=== PATIENT | female | born 1945 | race Caucasian/White ===

== ENCOUNTER 2016-11-01 17:30 | Emergency (ER) | payer MEDICARE, BC ==
[~2016-11-01] VITALS: Ht 152.4 cm; Wt 34.9 kg
[2016-11-01 17:38] VITALS: BP 141/94
[2016-11-01 18:48] LABS: Basophils # (auto) 0.1 uL; Basophils % (auto) 0.8 % (0.0-2.0); CONDITION Y; Eosinophils # (auto) 0.1 uL; Eosinophils % (auto) 1.1 % (0.0-7.0); Hematocrit 35.8 % (36.0-46.0); Hemoglobin 11.4 g/dL (12.2-16.2); Lymphocytes # (auto) 1.5 uL; Lymphocytes % (auto) 19.5 % (10.0-50.0); Mean Corpuscular Volume 90.5 fL (80.0-100.0); Mean Platelet Volume 9.9 fL (7.4-10.4); Monocytes # (auto) 0.9 uL; Monocytes % (auto) 11.3 % (0.0-12.0); Neutrophils # (auto) 5.3 uL; Neutrophils % (auto) 67.3 % (37.0-80.0); Platelet Count (auto) 223 10^3/uL (140-450); Red Cell Distribution Width 16.7 % (11.6-16.0); White Blood Cell 7.9 10^3/uL (4.4-10.8)
[2016-11-01 19:12] LABS: Albumin 3.4 g/dL (3.4-5.0); Anion Gap 11 (5-15); Aspartate Aminotransferase 8 U/L (15-37); Blood Urea Nitrogen 42 mg/dL (7-18); Calcium 8.3 mg/dL (8.5-10.1); Carbon Dioxide 19 mmol/L (21-32); Chloride 115 mmol/L (98-107); GFR African American 28 mL/min; GFR Non-African American 23 mL/min; Glucose 127 mg/dL (74-106); Magnesium 1.8 mg/dL (1.6-2.6); Potassium 4.3 mmol/L (3.5-5.1); Sodium 145 mmol/L (136-145)
[2016-11-01 19:17] LABS: Alkaline Phosphatase 91 U/L (45-117); Bilirubin, Total 0.2 mg/dL (0.2-1.0); Total Protein 7.4 g/dL (6.4-8.2)
== END 2016-11-01 21:49 | disposition left against medical advice (07) ==
LOC: ER 17:33
DX: R06.02 Shortness of breath (principal); Z53.21 Procedure and treatment not carried out due to patient leaving prior to being seen by health care provider
CPT/HCPCS: 36415; 71020; 80053; 82962; 83735; 84484; 85025; 93005

== ENCOUNTER 2017-02-14 22:14 | Inpatient (IN) | payer MEDICARE, OTHER ==
[~2017-02-14] VITALS: Ht 180.3 cm; Wt 42.0 kg
[2017-02-14 23:04] LABS: Basophils # (auto) 0.1 uL; Eosinophils # (auto) 0.1 uL; Lymphocytes # (auto) 0.6 uL
[2017-02-14 23:06] LABS: Basophils % (auto) 0.7 % (0.0-2.0); Eosinophils % (auto) 0.8 % (0.0-7.0); Lymphocytes % (auto) 4.1 % (10.0-50.0); Mean Corpuscular Hemoglobin 29.5 pg (28.0-32.0); Mean Platelet Volume 8.4 fL (6.9-10.8); Monocytes # (auto) 1.2 uL; Monocytes % (auto) 8.4 % (0.0-12.0); Platelet Count (auto) 338 10^3/uL (140-450); Red Cell Distribution Width 15.4 % (11.8-14.3); White Blood Cell 13.9 10^3/uL (4.4-10.8)
[2017-02-14 23:17] LABS: INR 0.99 (0.9-1.15); Partial Thromboplastin Time 37.3 sec (22.64-33.71); Prothrombin Time 10.8 sec (9.37-12.3)
[2017-02-14 23:23] LABS: Albumin 2.2 g/dL (3.4-5.0); Anion Gap 17 (5-15); Calcium 6.5 mg/dL (8.5-10.1); Carbon Dioxide 17 mmol/L (21-32); Chloride 100 mmol/L (98-107); Glucose 222 mg/dL (74-106); Magnesium 1.5 mg/dL (1.6-2.6); Potassium 5.1 mmol/L (3.5-5.1); Sodium 134 mmol/L (136-145)
[2017-02-14 23:26] LABS: Aspartate Aminotransferase 7 U/L (15-37); BUN/Creatinine Ratio 16.5; Bilirubin, Total 0.3 mg/dL (0.2-1.0); GFR African American 11 mL/min; GFR Non-African American 9 mL/min; Total Protein 7.1 g/dL (6.4-8.2)
[2017-02-14 23:29] LABS: Alkaline Phosphatase 75 U/L (45-117)
[2017-02-14 23:35] LABS: Blood Urea Nitrogen 85 mg/dL (7-18)
[2017-02-14 23:40] LABS: B-Type Natriuretic Peptide 146.3 pg/mL (0-100)
[2017-02-14 23:49] LABS: Temperature: 23.1 C (20.0-25.0)
[2017-02-15] MEDS ORDERED: SODIUM CHLORIDE 0.9% 1,000 ML IV ONE (00:15)
[2017-02-15 00:39] LABS: Amylase 35 U/L (25-115)
[2017-02-15] MEDS ORDERED: MAGNESIUM CITRATE SOLUTION 300 ML BTL PO ONE (02:30)
[2017-02-15] MEDS ORDERED: LACTULOSE 20Gm/30ML SOLN PO ONE (02:30)
[2017-02-15 02:33] LABS: Urine Bilirubin Negative (Negative); Urine Blood 1+ /uL (Negative); Urine Color Yellow (Yellow); Urine Glucose TRACE mg/dL (Normal); Urine Ketone Negative (Negative); Urine Nitrite Negative (Negative); Urine RBC 1 /hpf (0 - 4); Urine Squamous Epithelial Cell FEW /hpf (<5); Urine Urobilinogen Normal (Negative); Urine pH 5.5 (5.0-8.0)
[2017-02-15] MEDS ORDERED: SODIUM CHLORIDE 0.9% 1,000 ML IV SCH (03:33)
[2017-02-15] MEDS ORDERED: CALCIUM GLUC 4.65meq/50ml D5AE 50 ML IV ONE (03:45)
[2017-02-15] MEDS ORDERED: DEXTROSE (50%) 50ML SYRG IV PRN (03:45)
[2017-02-15] MEDS ORDERED: SODIUM BICARBONATE 650 MG TAB PO ONE (03:45)
[2017-02-15] MEDS ORDERED: MORPHINE SULF INJ 2 MG/ML SYRINGE 1ML IV PRN (03:45)
[2017-02-15] MEDS ORDERED: LOPERAMIDE HCL 2 MG CAP PO ONE (03:45)
[2017-02-15] MEDS ORDERED: ONDANSETRON HCL 4 MG/2 ML VIAL IV PRN (03:45)
[2017-02-15] MEDS ORDERED: ACETAMINOPHEN 325 MG TAB PO PRN (03:45)
[2017-02-15] MEDS ORDERED: NITROGLYCERIN 0.4 MG SL TAB SL PRN (03:45)
[2017-02-15] MEDS ORDERED: PANTOPRAZOLE 40 MG/10 ML VIAL IV ONE (03:45)
[2017-02-15 04:06] LABS: Allen Test Yes; Base Excess -9.5 mmol/L (-2.0-2.0); Blood 02Sat 95.8 % (96-100); Blood COHb 0.5 % (0.5-1.5); Blood MetHb 0.1 % (0.0-1.5); HCO3 16.3 mmol/L (22-26.0); HHb 4.2 % (0.0-5.0); MODE NASAL CANNULA; O2Hb 95.2 % (94.0-97.0); PCO2 35.3 mmHg (35.0-45.0); PCO2(T) 35.3 mmHg (35.0-45.0); PO2 100.1 mmHg (80.0-100.0); PO2(T) 100.1 mmHg (80.0-100.0); Room 1010-ERT; Sample Type Arterial; pH 7.283 (7.350-7.450)
[2017-02-15] MEDS ORDERED: ALBUTEROL SULF 2.5 MG/0.5ML(0.5%) NEB SOLN NEB PRN (05:15)
[2017-02-15] MEDS: MAGNESIUM SULFATE 1GM/100ML 100 ML IV SCH ×2 (05:24→06:50)
[2017-02-15] MEDS: ACCU-CHEK COMFORT CURVE STRIP VI SCH ×3 (06:50→18:11)
[2017-02-15] MEDS: InsuLIN REG 1unit/0.01ml Soln (100units/ml) SC SCH ×3 (06:58→18:11)
[2017-02-15] MEDS: PANTOPRAZOLE 40 MG/10 ML VIAL IV SCH (08:33)
[2017-02-15] MEDS: cefTRIAXone 1GM/50ML D5W 50 ML IV SCH (08:33)
[2017-02-15] MEDS: SODIUM BICARBONATE 650 MG TAB PO SCH ×2 (08:33→21:49)
[2017-02-15] MEDS: DILTIAZEM HCL 120MG ER CAP PO SCH (08:33)
[2017-02-15] MEDS ORDERED: PANTOPRAZOLE 40 MG/10 ML VIAL IV SCH (10:00)
[2017-02-15 13:00] VITALS: BP 90/53
[2017-02-15] MEDS: SODIUM BICARBONATE 50ML VIAL 75 ML in SOD CHL 0.45% 1,000 ML IV SCH (14:15)
[2017-02-15 17:01] VITALS: BP 114/43
[2017-02-15] MEDS ORDERED: PANT40TA2 PO (18:13)
[2017-02-15] MEDS ORDERED: DILT240C46 PO (18:13)
[2017-02-15] MEDS ORDERED: LOPE2CAP PO (18:13)
[2017-02-15] MEDS ORDERED: LOSA100T26 PO (18:13)
[2017-02-15] MEDS ORDERED: DIPH2.5T73 PO (18:15)
[2017-02-15] MEDS ORDERED: ASPI81TA27 PO (18:15)
[2017-02-15] MEDS ORDERED: INSLANTI SC (18:15)
[2017-02-15] MEDS ORDERED: ALPR1TAB7 PO (18:15)
[2017-02-15] MEDS ORDERED: ALPR0.254 PO (18:15)
[2017-02-15] MEDS ORDERED: HYDR-531 PO (18:15)
[2017-02-15] MEDS ORDERED: INSLISPI SC (18:16)
[2017-02-15 22:00] VITALS: BP 126/57
[2017-02-16] MEDS: InsuLIN REG 1unit/0.01ml Soln (100units/ml) SC SCH ×5 (00:20→23:35)
[2017-02-16] MEDS: ACCU-CHEK COMFORT CURVE STRIP VI SCH ×5 (00:20→23:35)
[2017-02-16] MEDS ORDERED: SODIUM BICARBONATE 8.4% INJ 50ML SYRINGE ONE (02:05)
[2017-02-16] MEDS: SODIUM BICARBONATE 50ML VIAL 75 ML in SOD CHL 0.45% 1,000 ML IV SCH ×2 (02:20→14:10)
[2017-02-16 05:12] VITALS: BP 137/58
[2017-02-16 05:35] LABS: Basophils # (auto) 0.1 uL; Eosinophils # (auto) 0.2 uL; Lymphocytes # (auto) 0.8 uL; Mean Platelet Volume 8.1 fL (6.9-10.8); Monocytes # (auto) 0.8 uL; White Blood Cell 9.2 10^3/uL (4.4-10.8)
[2017-02-16 05:39] LABS: Basophils % (auto) 0.9 % (0.0-2.0); Eosinophils % (auto) 2.7 % (0.0-7.0); Hematocrit 23.5 % (36.0-46.0); Hemoglobin 7.9 g/dL (12.2-16.2); Lymphocytes % (auto) 9.2 % (10.0-50.0); Mean Corpuscular Hemoglobin 30.5 pg (28.0-32.0); Mean Corpuscular Hgb Conc. 33.8 g/dL (32.0-36.0); Mean Corpuscular Volume 90.3 fL (80.0-100.0); Neutrophils # (auto) 7.2 uL; Neutrophils % (auto) 78.2 % (37.0-80.0); Platelet Count (auto) 313 10^3/uL (140-450); Red Cell Distribution Width 14.8 % (11.8-14.3)
[2017-02-16 06:02] LABS: Albumin 1.9 g/dL (3.4-5.0); Calcium 7.2 mg/dL (8.5-10.1); Potassium 3.9 mmol/L (3.5-5.1)
[2017-02-16 06:06] LABS: Bilirubin, Total 0.3 mg/dL (0.2-1.0)
[2017-02-16 06:12] LABS: BUN/Creatinine Ratio 18.2
[2017-02-16 08:00] VITALS: BP 133/69
[2017-02-16 09:00] VITALS: BP 133/69
[2017-02-16] MEDS: cefTRIAXone 1GM/50ML D5W 50 ML IV SCH (09:12)
[2017-02-16] MEDS: PANTOPRAZOLE 40 MG/10 ML VIAL IV SCH (11:00)
[2017-02-16] MEDS: SODIUM BICARBONATE 650 MG TAB PO SCH ×2 (11:01→21:21)
[2017-02-16] MEDS: DILTIAZEM HCL 120MG ER CAP PO SCH (11:01)
[2017-02-16 13:00] VITALS: BP 152/72
[2017-02-16 17:00] VITALS: BP 152/70
[2017-02-16 21:30] VITALS: BP 143/78
[2017-02-17] MEDS: SODIUM BICARBONATE 50ML VIAL 75 ML in SOD CHL 0.45% 1,000 ML IV SCH ×2 (04:34→18:50)
[2017-02-17 05:07] VITALS: BP 138/73
[2017-02-17] MEDS: ACCU-CHEK COMFORT CURVE STRIP VI SCH ×4 (05:36→23:37)
[2017-02-17] MEDS: InsuLIN REG 1unit/0.01ml Soln (100units/ml) SC SCH ×4 (05:36→23:37)
[2017-02-17 06:31] LABS: BUN/Creatinine Ratio 17.4; Calcium 6.7 mg/dL (8.5-10.1); Phosphorus 8.4 mg/dL (2.5-4.90); Potassium 3.9 mmol/L (3.5-5.1)
[2017-02-17 08:00] VITALS: BP 138/73
[2017-02-17 09:00] VITALS: BP 144/76
[2017-02-17] MEDS: PANTOPRAZOLE 40 MG/10 ML VIAL IV SCH (09:05)
[2017-02-17] MEDS: HYDROcodone-ACET 5/325MG TAB PO PRN ×2 (09:07→16:45)
[2017-02-17] MEDS: SODIUM BICARBONATE 650 MG TAB PO SCH ×2 (09:07→21:26)
[2017-02-17] MEDS: DILTIAZEM HCL 120MG ER CAP PO SCH (09:07)
[2017-02-17] MEDS: cefTRIAXone 1GM/50ML D5W 50 ML IV SCH (09:10)
[2017-02-17 13:00] VITALS: BP 143/65
[2017-02-17 17:00] VITALS: BP 144/68
[2017-02-17] MEDS: ALPRAZolam 0.25 MG TAB PO PRN (17:24)
[2017-02-17 22:00] VITALS: BP 137/73
[2017-02-18] MEDS: HYDROcodone-ACET 5/325MG TAB PO PRN (04:06)
[2017-02-18] MEDS: InsuLIN REG 1unit/0.01ml Soln (100units/ml) SC SCH ×4 (05:40→23:53)
[2017-02-18] MEDS: ACCU-CHEK COMFORT CURVE STRIP VI SCH ×4 (05:40→23:53)
[2017-02-18 05:50] VITALS: BP 147/62
[2017-02-18] MEDS ORDERED: SODIUM FERR GLUC 62.5MG/5ML 125 MG in SODIUM CHL 0.9% 100 ML IV ONE (07:45)
[2017-02-18 09:00] VITALS: BP_SYST 114; BP_SYST 147; BP_DIAS 50; BP_DIAS 77
[2017-02-18 09:28] LABS: BUN/Creatinine Ratio 17.1; Calcium 6.5 mg/dL (8.5-10.1); Potassium 3.5 mmol/L (3.5-5.1)
[2017-02-18] MEDS: Suplena 8 ounce PO SCH ×2 (10:00→21:49)
[2017-02-18] MEDS: SODIUM BICARBONATE 650 MG TAB PO SCH ×2 (11:08→21:49)
[2017-02-18] MEDS: PANTOPRAZOLE 40 MG/10 ML VIAL IV SCH (11:10)
[2017-02-18] MEDS: DILTIAZEM HCL 120MG ER CAP PO SCH (11:10)
[2017-02-18] MEDS: cefTRIAXone 1GM/50ML D5W 50 ML IV SCH (11:11)
[2017-02-18 13:00] VITALS: BP 154/80
[2017-02-18 17:00] VITALS: BP 136/77
[2017-02-18] MEDS: ALPRAZolam 0.25 MG TAB PO PRN (22:49)
[2017-02-18 23:53] VITALS: BP 161/80
[2017-02-19 04:50] VITALS: BP 134/72
[2017-02-19 05:59] LABS: Basophils # (auto) 0.1 uL; Hemoglobin 7.7 g/dL (12.2-16.2); Lymphocytes # (auto) 0.8 uL; Mean Platelet Volume 8.1 fL (6.9-10.8)
[2017-02-19] MEDS: InsuLIN REG 1unit/0.01ml Soln (100units/ml) SC SCH ×3 (06:00→18:22)
[2017-02-19 06:03] LABS: Basophils % (auto) 1.1 % (0.0-2.0); Eosinophils # (auto) 0.1 uL; Hematocrit 23.9 % (36.0-46.0); Lymphocytes % (auto) 11.6 % (10.0-50.0); Mean Corpuscular Hemoglobin 29.5 pg (28.0-32.0); Mean Corpuscular Hgb Conc. 32.3 g/dL (32.0-36.0); Mean Corpuscular Volume 91.2 fL (80.0-100.0); Monocytes # (auto) 0.7 uL; Monocytes % (auto) 9.6 % (0.0-12.0); Neutrophils # (auto) 5.4 uL; Neutrophils % (auto) 75.7 % (37.0-80.0); Platelet Count (auto) 249 10^3/uL (140-450); Red Cell Distribution Width 14.8 % (11.8-14.3); White Blood Cell 7.1 10^3/uL (4.4-10.8)
[2017-02-19] MEDS: ACCU-CHEK COMFORT CURVE STRIP VI SCH ×4 (06:04→23:59)
[2017-02-19] MEDS: HYDROcodone-ACET 5/325MG TAB PO PRN (06:14)
[2017-02-19 06:29] LABS: Albumin 1.8 g/dL (3.4-5.0); Calcium 6.3 mg/dL (8.5-10.1)
[2017-02-19 06:32] LABS: Bilirubin, Total 0.2 mg/dL (0.2-1.0); Total Protein 5.7 g/dL (6.4-8.2)
[2017-02-19 06:40] LABS: Potassium 2.9 mmol/L (3.5-5.1)
[2017-02-19] MEDS ORDERED: POTASSIUM CHLORIDE 40 MEQ, LIDOCAINE 1% (LOCAL ANESTH.) 4 ML in SODIUM CHL 0.9% 250 ML IV ONE (08:45)
[2017-02-19 09:00] VITALS: BP 158/77
[2017-02-19] MEDS: Suplena 8 ounce PO SCH ×2 (10:00→22:49)
[2017-02-19] MEDS: cefTRIAXone 1GM/10ml IVPUSH 10 ML IV SCH (10:28)
[2017-02-19] MEDS: SODIUM BICARBONATE 650 MG TAB PO SCH ×2 (10:28→21:45)
[2017-02-19] MEDS: PANTOPRAZOLE 40 MG/10 ML VIAL IV SCH (10:28)
[2017-02-19] MEDS: DILTIAZEM HCL 120MG ER CAP PO SCH (10:29)
[2017-02-19 12:34] VITALS: BP 155/78
[2017-02-19 14:44] VITALS: BP 155/78
[2017-02-19 16:13] VITALS: BP 152/66
[2017-02-19] MEDS: LOPERAMIDE HCL 2 MG CAP PO PRN ×3 (16:17→21:49)
[2017-02-19] MEDS: SODIUM FERR GLUC 62.5MG/5ML 125 MG in SODIUM CHL 0.9% 100 ML IV SCH (17:24)
[2017-02-19] MEDS: ALPRAZolam 0.25 MG TAB PO PRN (21:45)
[2017-02-19 22:45] VITALS: BP 157/76
[2017-02-20] MEDS: LOPERAMIDE HCL 2 MG CAP PO PRN ×3 (03:59→12:40)
[2017-02-20 05:06] VITALS: BP 158/78
[2017-02-20] MEDS: InsuLIN REG 1unit/0.01ml Soln (100units/ml) SC SCH ×3 (06:17→12:23)
[2017-02-20] MEDS: ACCU-CHEK COMFORT CURVE STRIP VI SCH ×3 (06:17→18:00)
[2017-02-20 06:24] LABS: Basophils # (auto) 0 uL; Basophils % (auto) 0.3 % (0.0-2.0); Eosinophils # (auto) 0 uL; Eosinophils % (auto) 0.1 % (0.0-7.0); Hematocrit 27.4 % (36.0-46.0); Hemoglobin 9.1 g/dL (12.2-16.2); Lymphocytes # (auto) 0.8 uL; Lymphocytes % (auto) 7.4 % (10.0-50.0); Mean Corpuscular Hemoglobin 29.9 pg (28.0-32.0); Mean Corpuscular Volume 90.6 fL (80.0-100.0); Mean Platelet Volume 8.3 fL (6.9-10.8); Monocytes # (auto) 0.5 uL; Neutrophils # (auto) 9.3 uL; Neutrophils % (auto) 87.2 % (37.0-80.0); Platelet Count (auto) 219 10^3/uL (140-450); Red Cell Distribution Width 14.6 % (11.8-14.3); White Blood Cell 10.6 10^3/uL (4.4-10.8)
[2017-02-20 06:43] LABS: Albumin 2.1 g/dL (3.4-5.0); BUN/Creatinine Ratio 15.5; Bilirubin, Total 0.2 mg/dL (0.2-1.0); Calcium 6.3 mg/dL (8.5-10.1); Total Protein 5.9 g/dL (6.4-8.2)
[2017-02-20 06:49] LABS: Potassium 2.8 mmol/L (3.5-5.1)
[2017-02-20 08:30] VITALS: BP 161/79
[2017-02-20] MEDS: SODIUM BICARBONATE 650 MG TAB PO SCH ×2 (08:38→21:30)
[2017-02-20] MEDS: DILTIAZEM HCL 120MG ER CAP PO SCH (08:38)
[2017-02-20] MEDS: PANTOPRAZOLE 40 MG/10 ML VIAL IV SCH (08:39)
[2017-02-20] MEDS: cefTRIAXone 1GM/10ml IVPUSH 10 ML IV SCH (08:39)
[2017-02-20] MEDS: Suplena 8 ounce PO SCH ×2 (08:40→21:39)
[2017-02-20] MEDS ORDERED: POTASSIUM CHL 20 Meq TABLET PO ONE (10:30)
[2017-02-20] MEDS ORDERED: POTASSIUM CHLORIDE 40 MEQ, LIDOCAINE 1% (LOCAL ANESTH.) 4 ML in SODIUM CHL 0.9% 250 ML IV ONE (10:30)
[2017-02-20] MEDS: SODIUM FERR GLUC 62.5MG/5ML 125 MG in SODIUM CHL 0.9% 100 ML IV SCH (12:00)
[2017-02-20 12:30] VITALS: BP 141/69
[2017-02-20] MEDS ORDERED: LOPERAMIDE HCL 2 MG CAP PO PRN (16:00)
[2017-02-20 17:12] VITALS: BP 149/74
[2017-02-20] MEDS: cloNIDine HCL 0.1 MG TAB PO PRN (21:30)
[2017-02-20 21:47] VITALS: BP 167/76
[2017-02-21] MEDS: ACCU-CHEK COMFORT CURVE STRIP VI SCH ×5 (00:24→22:07)
[2017-02-21] MEDS: ALPRAZolam 0.25 MG TAB PO PRN ×3 (00:26→16:53)
[2017-02-21 04:39] VITALS: BP 160/87
[2017-02-21] MEDS: cloNIDine HCL 0.1 MG TAB PO PRN ×2 (05:27→22:07)
[2017-02-21 06:01] LABS: Basophils # (auto) 0.1 uL; Basophils % (auto) 0.6 % (0.0-2.0); Eosinophils # (auto) 0.1 uL; Eosinophils % (auto) 1.4 % (0.0-7.0); Hematocrit 27.8 % (36.0-46.0); Hemoglobin 9.1 g/dL (12.2-16.2); Lymphocytes % (auto) 12.2 % (10.0-50.0); Mean Corpuscular Hemoglobin 29.9 pg (28.0-32.0); Mean Corpuscular Hgb Conc. 32.8 g/dL (32.0-36.0); Mean Corpuscular Volume 90.9 fL (80.0-100.0); Mean Platelet Volume 8.1 fL (6.9-10.8); Monocytes # (auto) 0.6 uL; Monocytes % (auto) 7.7 % (0.0-12.0); Neutrophils # (auto) 6.5 uL; Neutrophils % (auto) 78.1 % (37.0-80.0); Platelet Count (auto) 198 10^3/uL (140-450); Red Cell Distribution Width 14.7 % (11.8-14.3); White Blood Cell 8.3 10^3/uL (4.4-10.8)
[2017-02-21 06:28] LABS: Albumin 1.9 g/dL (3.4-5.0); BUN/Creatinine Ratio 14.1; Calcium 6.5 mg/dL (8.5-10.1); Potassium 3.2 mmol/L (3.5-5.1)
[2017-02-21 06:31] LABS: Bilirubin, Total 0.2 mg/dL (0.2-1.0); Total Protein 5.6 g/dL (6.4-8.2)
[2017-02-21] MEDS ORDERED: hydrALAZINE HCL 10 MG TAB PO ONE (07:00)
[2017-02-21] MEDS: SODIUM BICARBONATE 650 MG TAB PO SCH ×2 (08:33→21:43)
[2017-02-21] MEDS: cefTRIAXone 1GM/10ml IVPUSH 10 ML IV SCH (08:34)
[2017-02-21] MEDS: DILTIAZEM HCL 120MG ER CAP PO SCH (08:35)
[2017-02-21] MEDS: Suplena 8 ounce PO SCH ×2 (08:35→22:00)
[2017-02-21 09:00] VITALS: BP 185/87
[2017-02-21 13:00] VITALS: BP 159/73
[2017-02-21] MEDS: SODIUM FERR GLUC 62.5MG/5ML 125 MG in SODIUM CHL 0.9% 100 ML IV SCH (14:49)
[2017-02-21] MEDS ORDERED: ALBUTEROL SULF 2.5 MG/0.5ML(0.5%) NEB SOLN NEB ONE (16:30)
[2017-02-21] MEDS ORDERED: IPRATROPIUM BROM 0.5 MG/2.5ML INH SOL NEB ONE (16:30)
[2017-02-21] MEDS ORDERED: ALBUTEROL SULF 2.5 MG/0.5ML(0.5%) NEB SOLN NEB PRN (16:30)
[2017-02-21] MEDS ORDERED: POTASSIUM CHL 10 Meq TABLET PO ONE (16:30)
[2017-02-21] MEDS ORDERED: FUROSEMIDE 20 MG/2 ML VIAL IV ONE (16:45)
[2017-02-21] MEDS ORDERED: ENOXAPARIN SOD 30 MG/0.3 ML SYRINGE SC ONE (16:45)
[2017-02-21 17:00] VITALS: BP 153/84
[2017-02-21] MEDS ORDERED: DEXTROSE (50%) 50ML SYRG IV PRN ×2 (17:15→18:00)
[2017-02-21] MEDS ORDERED: methylPREDNISolone SOD SUCC 40 MG/ML VL IV ONE (17:45)
[2017-02-21] MEDS: IPRATROPIUM BROM 0.5 MG/2.5ML INH SOL NEB SCH (19:21)
[2017-02-21] MEDS: methylPREDNISolone SOD SUCC 40 MG/ML VL IV SCH (21:42)
[2017-02-21 22:00] VITALS: BP 162/83
[2017-02-21] MEDS ORDERED: ACCU-CHEK COMFORT CURVE STRIP VI SCH (22:00)
[2017-02-21] MEDS ORDERED: InsuLIN REG 1unit/0.01ml Soln (100units/ml) SC SCH (22:00)
[2017-02-21] MEDS: InsuLIN REG 1unit/0.01ml Soln (100units/ml) SC SCH (22:07)
[2017-02-22] VITALS (8 sets, daily range): BP systolic 140–190; BP diastolic 66–83
[2017-02-22] MEDS: cloNIDine HCL 0.1 MG TAB PO PRN ×3 (02:36→21:17)
[2017-02-22 05:40] LABS: Basophils # (auto) 0 uL; Basophils % (auto) 0.1 % (0.0-2.0); Eosinophils # (auto) 0 uL; Hematocrit 29.7 % (36.0-46.0); Lymphocytes # (auto) 0.4 uL; Lymphocytes % (auto) 4.5 % (10.0-50.0); Mean Corpuscular Hemoglobin 30.9 pg (28.0-32.0); Mean Corpuscular Hgb Conc. 33.9 g/dL (32.0-36.0); Mean Corpuscular Volume 91.3 fL (80.0-100.0); Mean Platelet Volume 8.7 fL (6.9-10.8); Monocytes # (auto) 0 uL; Monocytes % (auto) 0.4 % (0.0-12.0); Neutrophils # (auto) 7.6 uL; Platelet Count (auto) 175 10^3/uL (140-450); Red Cell Distribution Width 14.8 % (11.8-14.3)
[2017-02-22] MEDS: methylPREDNISolone SOD SUCC 40 MG/ML VL IV SCH ×3 (05:52→22:55)
[2017-02-22] MEDS: ACCU-CHEK COMFORT CURVE STRIP VI SCH ×4 (05:53→22:59)
[2017-02-22 06:02] LABS: Albumin 2.1 g/dL (3.4-5.0); BUN/Creatinine Ratio 15.4; Calcium 6.9 mg/dL (8.5-10.1); Potassium 3.2 mmol/L (3.5-5.1)
[2017-02-22 06:05] LABS: Bilirubin, Total 0.2 mg/dL (0.2-1.0); Total Protein 6.3 g/dL (6.4-8.2)
[2017-02-22] MEDS: InsuLIN REG 1unit/0.01ml Soln (100units/ml) SC SCH ×4 (06:44→22:58)
[2017-02-22] MEDS ORDERED: InsuLIN REG 1unit/0.01ml Soln (100units/ml) SC SCH (07:00)
[2017-02-22] MEDS: IPRATROPIUM BROM 0.5 MG/2.5ML INH SOL NEB SCH ×4 (07:37→19:57)
[2017-02-22] MEDS ORDERED: INSLANTI SC (09:52)
[2017-02-22] MEDS: SODIUM BICARBONATE 650 MG TAB PO SCH ×2 (09:54→22:57)
[2017-02-22] MEDS: cefTRIAXone 1GM/10ml IVPUSH 10 ML IV SCH (09:54)
[2017-02-22] MEDS: DILTIAZEM HCL 120MG ER CAP PO SCH (09:56)
[2017-02-22] MEDS: Suplena 8 ounce PO SCH ×2 (09:56→23:01)
[2017-02-22] MEDS ORDERED: ENOXAPARIN SOD 30 MG/0.3 ML SYRINGE SC SCH (10:00)
[2017-02-22] MEDS ORDERED: INSULIN DETEMIR(LEVEMIR) 1unit/0.01ml Soln (100units/ml) SC ONE (11:30)
[2017-02-22] MEDS: SODIUM FERR GLUC 62.5MG/5ML 125 MG in SODIUM CHL 0.9% 100 ML IV SCH (12:41)
[2017-02-22] MEDS: APIXABAN 5 MG TAB PO SCH (22:58)
[2017-02-22] MEDS: ALPRAZolam 0.25 MG TAB PO PRN (23:38)
[2017-02-23] MEDS: IPRATROPIUM BROM 0.5 MG/2.5ML INH SOL NEB SCH ×3 (00:56→11:40)
[2017-02-23 05:00] VITALS: BP 167/74
[2017-02-23 05:39] LABS: Basophils # (auto) 0 uL; Eosinophils # (auto) 0 uL; Hematocrit 30.6 % (36.0-46.0); Hemoglobin 9.8 g/dL (12.2-16.2); Lymphocytes # (auto) 0.7 uL; Lymphocytes % (auto) 3.9 % (10.0-50.0); Mean Corpuscular Hemoglobin 29.6 pg (28.0-32.0); Mean Corpuscular Volume 92.6 fL (80.0-100.0); Mean Platelet Volume 9.4 fL (6.9-10.8); Monocytes # (auto) 0.2 uL; Monocytes % (auto) 1.3 % (0.0-12.0); Neutrophils # (auto) 17.9 uL; Neutrophils % (auto) 94.8 % (37.0-80.0); Platelet Count (auto) 194 10^3/uL (140-450); Red Cell Distribution Width 14.8 % (11.8-14.3); White Blood Cell 18.9 10^3/uL (4.4-10.8)
[2017-02-23] MEDS: methylPREDNISolone SOD SUCC 40 MG/ML VL IV SCH (06:09)
[2017-02-23] MEDS: cloNIDine HCL 0.1 MG TAB PO PRN (06:10)
[2017-02-23 06:16] LABS: Albumin 2.3 g/dL (3.4-5.0); BUN/Creatinine Ratio 20.8; Bilirubin, Total 0.3 mg/dL (0.2-1.0); Calcium 6.9 mg/dL (8.5-10.1); Potassium 3.1 mmol/L (3.5-5.1); Total Protein 6.2 g/dL (6.4-8.2)
[2017-02-23] MEDS: InsuLIN REG 1unit/0.01ml Soln (100units/ml) SC SCH ×2 (06:31→11:30)
[2017-02-23] MEDS: ACCU-CHEK COMFORT CURVE STRIP VI SCH ×2 (06:32→11:30)
[2017-02-23 08:00] VITALS: BP 146/60
[2017-02-23 09:00] VITALS: BP 146/60
[2017-02-23] MEDS: SODIUM BICARBONATE 650 MG TAB PO SCH (09:58)
[2017-02-23] MEDS: cefTRIAXone 1GM/10ml IVPUSH 10 ML IV SCH (09:59)
[2017-02-23] MEDS: DILTIAZEM HCL 120MG ER CAP PO SCH (09:59)
[2017-02-23] MEDS: Suplena 8 ounce PO SCH (10:00)
[2017-02-23] MEDS: APIXABAN 5 MG TAB PO SCH (10:00)
[2017-02-23] MEDS: SODIUM FERR GLUC 62.5MG/5ML 125 MG in SODIUM CHL 0.9% 100 ML IV SCH (11:30)
[2017-02-23 12:19] VITALS: BP 153/75
[2017-02-23 13:00] VITALS: BP 153/75
== END 2017-02-23 14:30 | disposition home health service (06) | DRG 682 ==
LOC: ER 22:14 → EDUNIT# 22:14 → EDBD 22:14 → TELE 22:15 → TELE-WESTW 02-15 08:49
PROVIDERS: ADMIT Nurse Practitioner; ATTEND Internal Medicine
PROC: 30233N1 Transfusion of Nonautologous Red Blood Cells into Peripheral Vein, Percutaneous Approach (ICD-10-PCS; principal; 2017-02-19)
DX: N17.9 Acute kidney failure, unspecified (principal); E43 Unspecified severe protein-calorie malnutrition; E10.22 Type 1 diabetes mellitus with diabetic chronic kidney disease; E87.5 Hyperkalemia; K82.1 Hydrops of gallbladder; E46 Unspecified protein-calorie malnutrition; I13.0 Hypertensive heart and chronic kidney disease with heart failure and stage 1 through stage 4 chronic kidney disease, or unspecified chronic kidney disease; I50.9 Heart failure, unspecified; E87.1 Hypo-osmolality and hyponatremia; K83.8 Other specified diseases of biliary tract; E86.0 Dehydration; N39.0 Urinary tract infection, site not specified; J44.1 Chronic obstructive pulmonary disease with (acute) exacerbation; Z68.1 Body mass index [BMI] 19.9 or less, adult; K80.50 Calculus of bile duct without cholangitis or cholecystitis without obstruction; D63.1 Anemia in chronic kidney disease; D50.9 Iron deficiency anemia, unspecified; K52.9 Noninfective gastroenteritis and colitis, unspecified; K59.00 Constipation, unspecified; M81.0 Age-related osteoporosis without current pathological fracture; N20.0 Calculus of kidney; I70.0 Atherosclerosis of aorta; N18.3 Chronic kidney disease, stage 3 (moderate); Z98.82 Breast implant status
CPT/HCPCS: 36415; 36600; 71010; 74176; 74181; 78582; 80048; 80053; 81001; 82150; 82270; 82306; 82570; 82805; 82962; 83540; 83550; 83690; 83735; 83880; 83970; 84100; 84132; 84156; 84484; 85025; 85610; 85730; 86301; 86850; 86900; 86901; 86920; 87045; 87899; 93005; 93306; 94640; 96361; 96365; 96367; 96375; 96376; 97163; C9113; J0610; J0696; J1815; J2001; J2405

== ENCOUNTER 2017-03-22 07:32 | Inpatient (IN) | payer MEDICARE, OTHER ==
[~2017-03-22] VITALS: Ht 162.6 cm; Wt 41.4 kg
[~2017-03-22 07:32] MED LIST: ALPR0.254 PO; ALPR1TAB7 PO; ASPI81TA27 PO; DILT240C46 PO; DIPH2.5T73 PO; HYDR-531 PO; INSLANTI SC; INSLISPI SC; LOPE2CAP PO; LOSA100T33 PO; PANT40TA2 PO
[2017-03-22] MEDS ORDERED: SODIUM CHLORIDE 0.9% 500 ML IVB ONE (09:49)
[2017-03-22] MEDS ORDERED: LEVOFLOXACIN 500 MG/100 ML PREMIX BAG IV ONE (10:00)
[2017-03-22 12:05] LABS: Basophils # (auto) 0.1 uL; Basophils % (auto) 1.3 % (0.0-2.0); Eosinophils # (auto) 0 uL; Eosinophils % (auto) 0.7 % (0.0-7.0); Hematocrit 27.1 % (36.0-46.0); Hemoglobin 8.6 g/dL (12.2-16.2); Lymphocytes # (auto) 0.4 uL; Lymphocytes % (auto) 6.1 % (10.0-50.0); Mean Corpuscular Hemoglobin 29.8 pg (28.0-32.0); Mean Corpuscular Hgb Conc. 31.6 g/dL (32.0-36.0); Mean Corpuscular Volume 94.1 fL (80.0-100.0); Monocytes # (auto) 0.5 uL; Monocytes % (auto) 8.2 % (0.0-12.0); Neutrophils # (auto) 4.8 uL; Neutrophils % (auto) 83.7 % (37.0-80.0); Platelet Count (auto) 242 10^3/uL (140-450); Red Blood Cells 2.87 10^6/uL (4.0-5.20); White Blood Cell 5.7 10^3/uL (4.4-10.8)
[2017-03-22 12:24] LABS: Albumin 2.3 g/dL (3.4-5.0); BUN/Creatinine Ratio 11.4; Bilirubin, Total 0.2 mg/dL (0.2-1.0); Calcium 6.5 mg/dL (8.5-10.1); Magnesium 1.5 mg/dL (1.6-2.6); Potassium 4.2 mmol/L (3.5-5.1); Total Protein 6.8 g/dL (6.4-8.2)
[2017-03-22] MEDS ORDERED: HYDROcodone-ACET 5/325MG TAB PO PRN (13:45)
[2017-03-22] MEDS ORDERED: ONDANSETRON HCL 4 MG/2 ML VIAL IV PRN (13:45)
[2017-03-22] MEDS ORDERED: PANTOPRAZOLE 40 MG TAB PO ONE (13:45)
[2017-03-22] MEDS ORDERED: MAGNESIUM SULFATE 1GM/100ML 100 ML IV ONE (13:45)
[2017-03-22] MEDS ORDERED: DOCUSATE SOD 100 MG CAP PO PRN (13:45)
[2017-03-22] MEDS ORDERED: cefTRIAXone 1GM/10ml IVPUSH 10 ML IV ONE (13:45)
[2017-03-22] MEDS ORDERED: MORPHINE SULFATE 4 MG/ML SYR/VIAL IV PRN (13:45)
[2017-03-22] MEDS ORDERED: cloNIDine HCL 0.1 MG TAB PO PRN (13:45)
[2017-03-22] MEDS ORDERED: MORPHINE SULF INJ 2 MG/ML SYRINGE 1ML IV PRN (13:45)
[2017-03-22] MEDS ORDERED: DIPHENOXYLATE W/ATROPINE 2.5 MG TAB PO PRN (13:45)
[2017-03-22] MEDS ORDERED: NITROGLYCERIN 0.4 MG SL TAB SL PRN (13:45)
[2017-03-22] MEDS ORDERED: DEXTROSE (50%) 50ML SYRG IV PRN (13:45)
[2017-03-22] MEDS ORDERED: ACETAMINOPHEN 325 MG TAB PO PRN (13:45)
[2017-03-22] MEDS: SODIUM CHLORIDE 0.9% 1,000 ML IV SCH (14:08)
[2017-03-22 14:36] LABS: Urine Bacteria NONE SEEN /hpf (None Seen); Urine Blood 1+ /uL (Negative); Urine Specific Gravity 1.012 (1.001-1.035); Urine WBC 5 /hpf (0 - 5)
[2017-03-22] MEDS: ACCU-CHEK COMFORT CURVE STRIP VI SCH ×2 (17:43→22:00)
[2017-03-22] MEDS: InsuLIN REG 1unit/0.01ml Soln (100units/ml) SC SCH ×2 (17:47→22:00)
[2017-03-22] MEDS: ALPRAZolam 0.25 MG TAB PO PRN (18:47)
[2017-03-22] MEDS: Boost Glucose Control 8 Ounces PO SCH (19:05)
[2017-03-22] MEDS ORDERED: FAMOTIDINE 20 MG TAB PO SCH (22:00)
[2017-03-22] MEDS: INSULIN DETEMIR(LEVEMIR) 1unit/0.01ml Soln (100units/ml) SC SCH (22:00)
[2017-03-22 22:30] VITALS: BP 149/74
[2017-03-22 23:00] VITALS: BP 149/74
[2017-03-23] MEDS: ALPRAZolam 0.25 MG TAB PO PRN ×2 (02:51→17:28)
[2017-03-23] MEDS: SODIUM CHLORIDE 0.9% 1,000 ML IV SCH ×4 (02:51→21:35)
[2017-03-23 05:00] VITALS: BP 157/78
[2017-03-23 06:23] LABS: Basophils # (auto) 0 uL; Basophils % (auto) 0.6 % (0.0-2.0); Eosinophils # (auto) 0 uL; Eosinophils % (auto) 0.2 % (0.0-7.0); Hematocrit 29.5 % (36.0-46.0); Hemoglobin 9.2 g/dL (12.2-16.2); Lymphocytes # (auto) 0.4 uL; Lymphocytes % (auto) 5.7 % (10.0-50.0); Mean Corpuscular Hemoglobin 29.8 pg (28.0-32.0); Mean Corpuscular Hgb Conc. 31.2 g/dL (32.0-36.0); Mean Corpuscular Volume 95.6 fL (80.0-100.0); Monocytes # (auto) 0.7 uL; Monocytes % (auto) 9.8 % (0.0-12.0); Neutrophils # (auto) 6.2 uL; Neutrophils % (auto) 83.7 % (37.0-80.0); Platelet Count (auto) 255 10^3/uL (140-450); Red Blood Cells 3.08 10^6/uL (4.0-5.20); Red Cell Distribution Width 17.6 % (11.8-14.3); White Blood Cell 7.4 10^3/uL (4.4-10.8)
[2017-03-23 06:46] LABS: Albumin 2.2 g/dL (3.4-5.0); Calcium 6.8 mg/dL (8.5-10.1); Magnesium 1.7 mg/dL (1.6-2.6); Potassium 4.2 mmol/L (3.5-5.1)
[2017-03-23 06:48] LABS: BUN/Creatinine Ratio 11.5
[2017-03-23 06:50] LABS: Bilirubin, Total 0.2 mg/dL (0.2-1.0); Total Protein 6.6 g/dL (6.4-8.2)
[2017-03-23] MEDS: INSULIN DETEMIR(LEVEMIR) 1unit/0.01ml Soln (100units/ml) SC SCH ×2 (07:00→22:00)
[2017-03-23] MEDS: InsuLIN REG 1unit/0.01ml Soln (100units/ml) SC SCH ×4 (07:00→22:00)
[2017-03-23] MEDS: ACCU-CHEK COMFORT CURVE STRIP VI SCH ×4 (07:00→22:08)
[2017-03-23 08:00] VITALS: BP 159/86
[2017-03-23] MEDS: Boost Glucose Control 8 Ounces PO SCH ×3 (08:01→17:19)
[2017-03-23 09:02] VITALS: BP 159/86
[2017-03-23] MEDS: cefTRIAXone 1GM/10ml IVPUSH 10 ML IV SCH (10:19)
[2017-03-23] MEDS: PANTOPRAZOLE 40 MG TAB PO SCH (10:19)
[2017-03-23] MEDS: MULTIPLE VITAMIN TAB PO SCH (10:19)
[2017-03-23] MEDS: ASPirin-EC 81 mg tab PO SCH (10:20)
[2017-03-23] MEDS: LOSARTAN POTASSIUM 25 MG TAB PO SCH (10:20)
[2017-03-23] MEDS: DILTIAZEM HCL 120MG ER CAP PO SCH (10:21)
[2017-03-23 13:06] VITALS: BP 160/77
[2017-03-23] MEDS: CLINDAMYCIN 300MG IV 50 ML IV SCH ×2 (14:49→21:36)
[2017-03-23 16:56] VITALS: BP 153/91
[2017-03-23] MEDS: ALBUTEROL SULF 2.5 MG/0.5ML(0.5%) NEB SOLN NEB SCH (19:58)
[2017-03-23] MEDS: IPRATROPIUM BROM 0.5 MG/2.5ML INH SOL NEB SCH (19:58)
[2017-03-23 22:00] VITALS: BP 139/59
[2017-03-24] MEDS: ALBUTEROL SULF 2.5 MG/0.5ML(0.5%) NEB SOLN NEB SCH ×5 (00:50→23:52)
[2017-03-24] MEDS: IPRATROPIUM BROM 0.5 MG/2.5ML INH SOL NEB SCH (00:50)
[2017-03-24] MEDS ORDERED: FUROSEMIDE 20 MG/2 ML VIAL ONE (03:09)
[2017-03-24] MEDS ORDERED: FUROSEMIDE 20 MG/2 ML VIAL IV ONE ×2 (03:15→17:45)
[2017-03-24] MEDS ORDERED: ALBUTEROL SULF 2.5 MG/0.5ML(0.5%) NEB SOLN NEB PRN (03:15)
[2017-03-24] MEDS: ALPRAZolam 0.25 MG TAB PO PRN ×2 (03:32→12:00)
[2017-03-24 05:00] VITALS: BP 135/67
[2017-03-24] MEDS: CLINDAMYCIN 300MG IV 50 ML IV SCH ×3 (05:52→21:34)
[2017-03-24] MEDS ORDERED: IPRATROPIUM BROM 0.5 MG/2.5ML INH SOL NEB SCH (06:00)
[2017-03-24] MEDS: ACCU-CHEK COMFORT CURVE STRIP VI SCH ×4 (06:19→21:34)
[2017-03-24] MEDS: InsuLIN REG 1unit/0.01ml Soln (100units/ml) SC SCH ×4 (06:20→21:34)
[2017-03-24] MEDS: INSULIN DETEMIR(LEVEMIR) 1unit/0.01ml Soln (100units/ml) SC SCH ×2 (06:20→22:00)
[2017-03-24 06:45] LABS: Hematocrit 27.7 % (36.0-46.0); Mean Corpuscular Hemoglobin 30.2 pg (28.0-32.0); Mean Corpuscular Hgb Conc. 32.5 g/dL (32.0-36.0); Mean Corpuscular Volume 92.9 fL (80.0-100.0); Platelet Count (auto) 244 10^3/uL (140-450); Red Blood Cells 2.98 10^6/uL (4.0-5.20); Red Cell Distribution Width 16.9 % (11.8-14.3); White Blood Cell 8.2 10^3/uL (4.4-10.8)
[2017-03-24 07:00] LABS: Band Neutrophils % (manual) 0; Basophils % (manual) 0 (0.0-2.0); Blast Cells 0; Eosinophils % (manual) 0 (0-7); Promyelocytes % 0; Reactive Lymphocytes 0
[2017-03-24 07:05] LABS: Alanine Aminotransferase 14 U/L (13-56); Albumin 2.1 g/dL (3.4-5.0); Alkaline Phosphatase 74 U/L (45-117); Anion Gap 12 (5-15); Aspartate Aminotransferase 19 U/L (15-37); BUN/Creatinine Ratio 11.1; Bilirubin, Total 0.2 mg/dL (0.2-1.0); Blood Urea Nitrogen 42 mg/dL (7-18); Carbon Dioxide 16 mmol/L (21-32); Chloride 117 mmol/L (98-107); GFR African American 15 mL/min; GFR Non-African American 12 mL/min; Glucose 169 mg/dL (74-106); Potassium 4.1 mmol/L (3.5-5.1); Sodium 145 mmol/L (136-145); Total Protein 6.1 g/dL (6.4-8.2)
[2017-03-24] MEDS: Boost Glucose Control 8 Ounces PO SCH ×3 (07:36→17:44)
[2017-03-24 09:09] VITALS: BP 140/76
[2017-03-24] MEDS: cefTRIAXone 1GM/10ml IVPUSH 10 ML IV SCH (09:13)
[2017-03-24] MEDS: MULTIPLE VITAMIN TAB PO SCH (09:58)
[2017-03-24] MEDS: ASPirin-EC 81 mg tab PO SCH (09:58)
[2017-03-24] MEDS: PANTOPRAZOLE 40 MG TAB PO SCH (09:58)
[2017-03-24] MEDS: DILTIAZEM HCL 120MG ER CAP PO SCH (09:59)
[2017-03-24] MEDS: LOSARTAN POTASSIUM 25 MG TAB PO SCH (09:59)
[2017-03-24] MEDS: OSELTAMIVIR 30 MG CAP PO SCH (10:00)
[2017-03-24 11:25] LABS: Lymphocytes % (manual) 19 (10.0-50.0); Metamyelocytes % 1; Monocytes % (manual) 5 (0-12); Myelocytes % 2
[2017-03-24 13:00] VITALS: BP 141/68
[2017-03-24 13:55] VITALS: BP 140/76
[2017-03-24 16:53] VITALS: BP 108/44
[2017-03-24] MEDS: IPRATROPIUM BROM 0.5 MG/2.5ML INH SOL NEB PRN (18:28)
[2017-03-24] MEDS: SODIUM BICARBONATE 650 MG TAB PO SCH (22:01)
[2017-03-24 22:05] VITALS: BP 134/63
[2017-03-25] MEDS: ALPRAZolam 0.25 MG TAB PO PRN ×3 (00:17→18:00)
[2017-03-25 05:30] VITALS: BP 147/64
[2017-03-25] MEDS: CLINDAMYCIN 300MG IV 50 ML IV SCH ×2 (05:43→13:27)
[2017-03-25] MEDS: InsuLIN REG 1unit/0.01ml Soln (100units/ml) SC SCH ×4 (06:24→22:00)
[2017-03-25] MEDS: ACCU-CHEK COMFORT CURVE STRIP VI SCH ×4 (06:24→21:59)
[2017-03-25] MEDS: INSULIN DETEMIR(LEVEMIR) 1unit/0.01ml Soln (100units/ml) SC SCH ×2 (06:25→22:00)
[2017-03-25 06:32] LABS: % Iron Saturation 37.5 % (15-50)
[2017-03-25 06:37] LABS: Basophils # (auto) 0 uL; Basophils % (auto) 0.4 % (0.0-2.0); Eosinophils # (auto) 0 uL; Eosinophils % (auto) 0.4 % (0.0-7.0); Hematocrit 27.7 % (36.0-46.0); Hemoglobin 8.6 g/dL (12.2-16.2); Lymphocytes # (auto) 0.7 uL; Mean Corpuscular Hgb Conc. 31.2 g/dL (32.0-36.0); Mean Corpuscular Volume 96.2 fL (80.0-100.0); Monocytes # (auto) 0.5 uL; Monocytes % (auto) 6.7 % (0.0-12.0); Neutrophils % (auto) 82.5 % (37.0-80.0); Platelet Count (auto) 192 10^3/uL (140-450); Red Blood Cells 2.88 10^6/uL (4.0-5.20); Red Cell Distribution Width 18.1 % (11.8-14.3); White Blood Cell 7.3 10^3/uL (4.4-10.8)
[2017-03-25 06:46] LABS: BUN/Creatinine Ratio 11.9; Calcium 6.8 mg/dL (8.5-10.1); Potassium 3.4 mmol/L (3.5-5.1)
[2017-03-25] MEDS: ALBUTEROL SULF 2.5 MG/0.5ML(0.5%) NEB SOLN NEB SCH ×3 (07:40→18:48)
[2017-03-25 08:50] VITALS: BP 156/83
[2017-03-25] MEDS ORDERED: POTASSIUM CHL 20 Meq TABLET PO ONE (09:30)
[2017-03-25] MEDS: cefTRIAXone 1GM/10ml IVPUSH 10 ML IV SCH (09:51)
[2017-03-25] MEDS: ASCORBIC ACID 500 MG TAB PO SCH (10:00)
[2017-03-25] MEDS: OSELTAMIVIR 30 MG CAP PO SCH (10:00)
[2017-03-25] MEDS ORDERED: ASCORBIC ACID 500 MG TAB PO ONE (10:15)
[2017-03-25] MEDS: PANTOPRAZOLE 40 MG TAB PO SCH (10:51)
[2017-03-25] MEDS: SODIUM BICARBONATE 650 MG TAB PO SCH ×2 (10:51→21:53)
[2017-03-25] MEDS: ASPirin-EC 81 mg tab PO SCH (10:51)
[2017-03-25] MEDS: MULTIPLE VITAMIN TAB PO SCH (10:52)
[2017-03-25] MEDS: LOSARTAN POTASSIUM 25 MG TAB PO SCH (10:54)
[2017-03-25] MEDS: DILTIAZEM HCL 120MG ER CAP PO SCH (10:54)
[2017-03-25] MEDS ORDERED: Boost Glucose Control 8 Ounces PO SCH (12:00)
[2017-03-25] MEDS: IPRATROPIUM BROM 0.5 MG/2.5ML INH SOL NEB PRN ×2 (13:44→18:48)
[2017-03-25 17:00] VITALS: BP 161/84
[2017-03-25] MEDS ORDERED: metroNIDAZOLE 500 MG TAB PO ONE (17:15)
[2017-03-25 21:46] VITALS: BP 150/83
[2017-03-25] MEDS: metroNIDAZOLE 500 MG TAB PO SCH (21:53)
[2017-03-25] MEDS: Suplena 8 ounce PO SCH (21:54)
[2017-03-25] MEDS ORDERED: metroNIDAZOLE 500MG/100ML 100 ML IV SCH (22:00)
[2017-03-26] MEDS: ALBUTEROL SULF 2.5 MG/0.5ML(0.5%) NEB SOLN NEB SCH ×3 (01:21→11:26)
[2017-03-26 04:37] VITALS: BP 131/58
[2017-03-26] MEDS: metroNIDAZOLE 500 MG TAB PO SCH ×2 (05:40→14:00)
[2017-03-26 06:00] LABS: Basophils # (auto) 0 uL; Basophils % (auto) 0.5 % (0.0-2.0); Eosinophils # (auto) 0 uL; Eosinophils % (auto) 0.3 % (0.0-7.0); Lymphocytes # (auto) 0.7 uL; Lymphocytes % (auto) 10.1 % (10.0-50.0); Mean Corpuscular Hgb Conc. 32.3 g/dL (32.0-36.0); Mean Corpuscular Volume 92.8 fL (80.0-100.0); Monocytes # (auto) 0.7 uL; Monocytes % (auto) 10.8 % (0.0-12.0); Neutrophils # (auto) 5.4 uL; Neutrophils % (auto) 78.3 % (37.0-80.0); Platelet Count (auto) 163 10^3/uL (140-450); Red Blood Cells 3.02 10^6/uL (4.0-5.20); White Blood Cell 6.9 10^3/uL (4.4-10.8)
[2017-03-26 06:23] LABS: Potassium 3.5 mmol/L (3.5-5.1)
[2017-03-26 06:30] LABS: BUN/Creatinine Ratio 12.1; Calcium 6.8 mg/dL (8.5-10.1)
[2017-03-26] MEDS: INSULIN DETEMIR(LEVEMIR) 1unit/0.01ml Soln (100units/ml) SC SCH (07:00)
[2017-03-26] MEDS: InsuLIN REG 1unit/0.01ml Soln (100units/ml) SC SCH ×2 (07:00→11:30)
[2017-03-26] MEDS: ACCU-CHEK COMFORT CURVE STRIP VI SCH ×2 (07:04→11:30)
[2017-03-26 09:33] VITALS: BP 166/91
[2017-03-26] MEDS: OSELTAMIVIR 30 MG CAP PO SCH (10:00)
[2017-03-26] MEDS: SODIUM BICARBONATE 650 MG TAB PO SCH (11:03)
[2017-03-26] MEDS: MULTIPLE VITAMIN TAB PO SCH (11:04)
[2017-03-26] MEDS: ASCORBIC ACID 500 MG TAB PO SCH (11:04)
[2017-03-26] MEDS: DILTIAZEM HCL 120MG ER CAP PO SCH (11:04)
[2017-03-26] MEDS: LOSARTAN POTASSIUM 25 MG TAB PO SCH (11:04)
[2017-03-26] MEDS: PANTOPRAZOLE 40 MG TAB PO SCH (11:04)
[2017-03-26] MEDS: ASPirin-EC 81 mg tab PO SCH (11:05)
[2017-03-26] MEDS: Suplena 8 ounce PO SCH (11:05)
[2017-03-26] MEDS: cefTRIAXone 1GM/10ml IVPUSH 10 ML IV SCH (11:05)
[2017-03-26 12:15] VITALS: BP 181/98
[2017-03-26 13:18] VITALS: BP 181/98
== END 2017-03-26 15:15 | disposition home or self-care (01) | DRG 371 ==
LOC: EDBD 07:32 → ER 07:32 → TELE 07:33 → TELE-EAST 22:30
PROVIDERS: ADMIT Internal Medicine; ATTEND Family Medicine
DX: A04.72 Enterocolitis due to Clostridium difficile, not specified as recurrent (principal); G92 Toxic encephalopathy; N17.9 Acute kidney failure, unspecified; E44.0 Moderate protein-calorie malnutrition; I12.0 Hypertensive chronic kidney disease with stage 5 chronic kidney disease or end stage renal disease; N18.5 Chronic kidney disease, stage 5; J10.1 Influenza due to other identified influenza virus with other respiratory manifestations; E10.22 Type 1 diabetes mellitus with diabetic chronic kidney disease; D63.8 Anemia in other chronic diseases classified elsewhere; E10.21 Type 1 diabetes mellitus with diabetic nephropathy; E10.621 Type 1 diabetes mellitus with foot ulcer; E10.65 Type 1 diabetes mellitus with hyperglycemia; E83.42 Hypomagnesemia; E83.51 Hypocalcemia; E86.0 Dehydration; E87.8 Other disorders of electrolyte and fluid balance, not elsewhere classified; I05.0 Rheumatic mitral stenosis; I70.0 Atherosclerosis of aorta; L97.509 Non-pressure chronic ulcer of other part of unspecified foot with unspecified severity; Z98.51 Tubal ligation status; Z98.49 Cataract extraction status, unspecified eye; Z79.82 Long term (current) use of aspirin; Z79.4 Long term (current) use of insulin; Z82.62 Family history of osteoporosis; Z83.3 Family history of diabetes mellitus; Z87.440 Personal history of urinary (tract) infections; Z98.82 Breast implant status
CPT/HCPCS: 36415; 70450; 71045; 80048; 80053; 81001; 82962; 83036; 83540; 83550; 83605; 83735; 84100; 84443; 84484; 85007; 85025; 85027; 87040; 87045; 87081; 87086; 87400; 87493; 87899; 93005; 94640; 94761; 96361; 96365; 96372; 96375; 97163; G9035; J1815; J1956; J3490